=== PATIENT | male | born 1995 | race Two or more races ===

== ENCOUNTER 2018-06-22 16:23 | Emergency (ER) | payer OTHER ==
[~2018-06-22] VITALS: Ht 167.6 cm; Wt 99.8 kg
== END 2018-06-22 22:17 | disposition home or self-care (01) ==
LOC: ER 16:23
DX: S61.012A Laceration without foreign body of left thumb without damage to nail, initial encounter (principal); W45.8XXA Other foreign body or object entering through skin, initial encounter; Y93.89 Activity, other specified; Y92.69 Other specified industrial and construction area as the place of occurrence of the external cause; Y99.8 Other external cause status